=== PATIENT | female | born 1955 | race Caucasian/White ===

== ENCOUNTER → 2017-11-19 | Outpatient (CLI) | END | disposition home or self-care (01) ==

== ENCOUNTER → 2017-12-10 | Outpatient (CLI) | END | disposition home or self-care (01) ==

== ENCOUNTER → 2017-12-15 | Outpatient (CLI) | END | disposition home or self-care (01) ==

== ENCOUNTER 2017-12-29 06:18 | Inpatient (IN) | END 2017-12-31 16:45 | disposition home health service (06) | DRG 467 ==

== ENCOUNTER → 2018-01-13 | Outpatient (CLI) | END | disposition home or self-care (01) ==

== ENCOUNTER → 2018-02-24 | Outpatient (CLI) | END | disposition home or self-care (01) ==